=== PATIENT | male | born 1975 | race Caucasian/White ===

== ENCOUNTER 2020-11-24 18:44 | Emergency (ER) | payer OTHER ==
[~2020-11-24] VITALS: Ht 188 cm; Wt 163.3 kg
[~2020-11-24 18:44] MED LIST: GABAPENTIN; NEURONTIN 300300 M1 PO; PERCOCET 5-3251 EACH PO
[2020-11-24] MEDS ORDERED: DILTIAZEM 24HR300 M2 PO (19:21)
[2020-11-24] MEDS ORDERED: CHLORTHALIDONE25 MG PO (19:21)
[2020-11-24] MEDS ORDERED: ZOLOFT100 MG PO (19:22)
[2020-11-24] MEDS ORDERED: INDERAL LA120 M1 PO (19:22)
[2020-11-24] MEDS ORDERED: ALLOPURINOL 10100 M1 PO (19:22)
[2020-11-24] MEDS ORDERED: KEPPRA XR500 MG PO (19:22)
[2020-11-24] MEDS ORDERED: METFORMIN HCL500 M3 PO (19:22)
[2020-11-24 19:23] LABS: URINE BILIRUBIN NEGATIVE (Negative); URINE BLOOD 3+ (Negative); URINE CLARITY CLEAR; URINE COLOR YELLOW; URINE GLUCOSE-RANDOM NEGATIVE (Negative); URINE KETONES NEGATIVE (Negative); URINE LEUKOCYTES-REFLEX NEGATIVE (Negative); URINE NITRITE-REFLEX NEGATIVE (Negative); URINE PROTEIN NEGATIVE (Negative); URINE SPECIFIC GRAVITY 1.025 (1.005-1.030); URINE UROBILINOGEN 0.2 E.U./dl (0.2-1.0)
[2020-11-24] MEDS ORDERED: LIPITOR40 MG PO (19:23)
[2020-11-24 19:50] LABS: SQUAMOUS 0-3 Few /LPF (0-3); URINE RBC >20 Many /HPF (0-2); URINE WBC-REFLEX 0-5 Rare /HPF (0-5)
[2020-11-24 19:51] LABS: CRYSTALS None Seen /LPF (None Seen); HYALINE CASTS 4-10 Moderate /LPF (None Seen); MUCUS >6 Heavy strn/LPF (None Seen)
[2020-11-24 20:05] LABS: ABSOLUTE BASOPHILS 0.2 thou/uL (0.0-0.2); ABSOLUTE EOSINOPHILS 0.7 thou/uL (0.0-0.7); ABSOLUTE LYMPHOCYTES 2.2 thou/uL (0.8-5.3); ABSOLUTE MONOCYTES 0.9 thou/uL (0.0-1.2); ABSOLUTE NEUTROPHILS 10.7 thou/uL (1.6-8.1); BASOPHILS 1.3 %; HEMATOCRIT 43.2 % (42.0-52.0); HEMOGLOBIN 14.8 gm/dL (14.0-18.0); LYMPHOCYTES 15.1 %; MCH 28.5 pg (26.0-34.0); MCHC 34.3 g/dL (28.0-37.0); MCV 83.1 fL (80.0-100.0); MONOCYTES 6.1 %; MPV 7.3 fl. (7.2-11.1); NUCLEATED RBCS 0 /100WBC; PLATELET COUNT* 256 thou/uL (150-400); POLYS 72.5 %; RBC 5.19 mil/uL (4.50-6.00); RDW-CV 12.9 % (10.5-14.5); WBC 14.7 thou/uL (4.0-11.0)
[2020-11-24 20:18] LABS: CALCIUM 8.6 mg/dL (8.5-10.1); CREATININE 1.4 mg/dL (0.6-1.3); POTASSIUM 3.6 mmol/L (3.5-5.1)
[2020-11-24 20:27] LABS: ALBUMIN 3.8 g/dL (3.4-5.0); TOTAL BILIRUBIN 0.5 mg/dL (<0.1-1.0); TOTAL PROTEIN 6.9 g/dL (6.4-8.2)
[2020-11-24] MEDS ORDERED: CIPRO500 M1 PO (20:45)
[2020-11-24] MEDS ORDERED: NORCO5 PO (20:45)
[2020-11-24] MEDS ORDERED: FLOMAX0.4 MG PO (20:45)
[2020-11-24] MEDS ORDERED: ONDANSETRON HCL4 M2 PO (20:45)
[2020-11-24] MEDS ORDERED: IBUPROFEN 800800 M1 PO (20:45)
[2020-11-24 20:58] VITALS: BP 132/76
== END 2020-11-24 20:58 | disposition home or self-care (01) ==
LOC: M.ERS 18:44
PROVIDERS: Family Medicine
DX: N20.1 Calculus of ureter (principal); I10 Essential (primary) hypertension; E11.9 Type 2 diabetes mellitus without complications; E78.00 Pure hypercholesterolemia, unspecified; Z88.0 Allergy status to penicillin